=== PATIENT | male | born 1995 | race Caucasian/White ===

== ENCOUNTER 2016-10-16 15:36 | Emergency (ER) | payer OTHER ==
[2016-10-16 15:41] VITALS: TEMP 98.4
--- NOTE | 2016-10-16 16:32 | EDPHY ---
H & P Time Seen by Provider: 10/16/16 16:02 HPI/ROS: CHIEF COMPLAINT: "Weak ankles" HISTORY OF PRESENT ILLNESS: Patient is a 21-year-old male who presents to the emergency department complaining of bilateral weak ankles. His primary complaint is that he cannot dorsiflex his feet bilaterally. He began to notice this on Monday. The patient normally plays hockey and soccer. He is unable to do both because of his weakness. He states he cannot walk on his heels. Patient denies numbness or tingling. He denies other leg weakness. No upper extremity weakness or numbness. He had no recent trauma or fall. No fevers or chills. No recent travel. 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 REVIEW OF SYSTEMS: My complete review of systems is negative except as mentioned in the HPI. Past Medical/Surgical History: Negative Past surgical history: Negative Smoking Status: Never smoked Physical Exam: Vitals noted GENERAL: Well-appearing, in no acute distress, alert. HEENT: Eyes normal to inspection, normal pharynx, no signs of dehydration. NECK: No thyromegaly, no lymphadenopathy, supple. RESPIRATORY: Clear to auscultation bilaterally, no rales, rhonchi or wheezing. CVS: Regular rate and rhythm, no rubs, murmurs, or gallops. ABDOMEN: Soft, nontender, nondistended, no organomegaly. BACK: Normal to inspection, no CVA tenderness. SKIN: Normal color, no rash, warm, dry. No pallor. EXTREMITIES: No pedal edema, no calf tenderness, no Homans sign or cords, no joint swelling. NEURO/PSYCH: Higher functions: Alert and Oriented. Normal speech and cognition. Normal mood and affect. Cranial nerves: Normal as tested. Cerebellar: Normal as tested. Good finger to nose, good [id number], normal gait. Peripheral exam: patient has mild bilateral dorsiflexion or weakness. He is unable to ambulate on his heels. He is able to ambulate on his toes. He has no quadriceps, hamstring or hip weakness. Normal sensation. Normal reflexes. Constitutional: Initial Vital Signs Temperature (C) 36.9 C 10/16/16 15:37 Heart Rate 87 10/16/16 15:37 Respiratory Rate 18 10/16/16 15:37 Blood Pressure 159/71 H 10/16/16 15:37 O2 Sat (%) 97 10/16/16 15:37 O2 Delivery Mode Room Air Allergies/Adverse Reactions: No Known Allergies Allergy (Unverified 10/16/16 15:41) Home Medications: Medication Instructions Recorded NK [No Known Home Meds] 10/16/16 Medical Decision Making - Diagnostics Imaging Results: Imaging Impressions Lumbar Spine MRI 10/16/16 16:38 Impression: Congenitally small lumbar neural canal. Otherwise unremarkable. Results called and discussed with GEOVANNI GARZON, at 10/16/2016 17:29 ED Course/Re-evaluation: In the emergency department I discussed possible etiologies with the patient. I answered all his questions. I discussed the case with Dr. rosales Benites from Neurology. He recommended lumbar MRI. I discussed with the patient. He consented. MRI lumbar spine: Congenitally small lumbar spinal canal. CBC and chemistry unremarkable. I discussed the results with the patient. On recheck he had no new focal neurologic deficits. He will follow up with Dr. Shaffer this week. He was given contact information. He will return to the emergency department if his symptoms worsen. Differential Diagnosis: My differential includes disc herniation, cauda equina syndrome, demyelinization disease, Guillain-[place], [place] - Data Points Laboratory Results: Laboratory Results 10/16/16 17:30 10/16/16 17:30 10/16/16 10/16/16 17:30 17:30 WBC 5.98 10^3/uL 10^3/uL (3.80-9.50) RBC 4.90 10^6/uL 10^6/uL (4.40-6.38) Hgb 15.1 g/dL g/dL (13.7-17.5) Hct 44.6 % % (40.0-51.0) MCV 91.0 fL fL (81.5-99.8) MCH 30.8 pg pg (27.9-34.1) MCHC 33.9 g/dL g/dL (32.4-36.7) RDW 12.0 % % (11.5-15.2) Plt Count 234 10^3/uL 10^3/uL (150-400) MPV 9.7 fL fL (8.7-11.7) Neut % (Auto) 72.8 % % (39.3-74.2) Lymph % (Auto) 20.7 % % (15.0-45.0) Ware % (Auto) 4.5 % % (4.5-13.0) Eos % (Auto) 0.7 % % (0.6-7.6) Baso % (Auto) 1.0 % % (0.3-1.7) Nucleat RBC Rel Count 0.0 % % (0.0-0.2) Absolute Neuts (auto) 4.35 10^3/uL 10^3/uL (1.70-6.50) Absolute Lymphs (auto) 1.24 10^3/uL 10^3/uL (1.00-3.00) Absolute Monos (auto) 0.27 10^3/uL L 10^3/uL (0.30-0.80) Absolute Eos (auto) 0.04 10^3/uL 10^3/uL (0.03-0.40) Absolute Basos (auto) 0.06 10^3/uL 10^3/uL (0.02-0.10) Absolute Nucleated RBC 0.00 10^3/uL 10^3/uL (0-0.01) Immature Gran % 0.3 % % (0.0-1.1) Immature Gran # 0.02 10^3/uL 10^3/uL (0.00-0.10) Sodium 141 mEq/L mEq/L (134-144) Potassium 4.5 mEq/L mEq/L (3.5-5.2) Chloride 106 mEq/L mEq/L (97-110) Carbon Dioxide 26 mEq/l mEq/l (22-31) Anion Gap 9 mEq/L mEq/L (8-16) BUN 16 mg/dL mg/dL (7-23) Creatinine 1.1 mg/dL mg/dL (0.7-1.3) Estimated GFR > 60 Glucose 88 mg/dL mg/dL (70-100) Calcium 10.0 mg/dL mg/dL (8.5-10.4) Departure - Departure Disposition: Home, Routine, Self-Care Clinical Impression: Weakness of foot Qualifiers: Laterality: unspecified laterality Qualified Code(s): M21.40 - Flat foot [pes planus] (acquired), unspecified foot Condition: Good Instructions: Weakness (ED) Additional Instructions: Your MRI of lumbar spine was normal. You need close follow-up with Dr. Shaffer from Neurology. Call to make an appointment was office. Return to the emergency department if you develope increasing weakness, numbness, incontinence of urine or stool, fever, chills or any other concerns. Referrals: Kwame Shaffer DO [Doctor of Osteopathy] - 2-3 days without fail
[2016-10-16 17:45] LABS: % IMMATURE GRANULYOCYTES 0.3 % (0.0-1.1); ABSOLUTE IMMATURE GRANULOCYTES 0.02 10^3/uL (0.00-0.10); ADD DIFF? NO; ADD MORPH? NO; ADD SCAN? NO; ATYPICAL LYMPHOCYTE FLAG 10 (0-99); FRAGMENT RBC FLAG 0 (0-99); HEMATOCRIT 44.6 % (40.0-51.0); HEMOGLOBIN 15.1 g/dL (13.7-17.5); LEFT SHIFT FLG 0 (0-99); LIPEMIA HEMOLYSIS FLAG 90 (0-99); MEAN CELL HEMOGLOBIN 30.8 pg (27.9-34.1); MEAN CELL HEMOGLOBIN CONCENTR. 33.9 g/dL (32.4-36.7); MEAN PLATELET VOLUME 9.7 fL (8.7-11.7); PLATELET CLUMPS FLAG 0 (0-99); PLATELET COUNT 234 10^3/uL (150-400)
[2016-10-16 17:48] LABS: ANION GAP 9 mEq/L (8-16); CARBON DIOXIDE 26 mEq/l (22-31); CHLORIDE 106 mEq/L (97-110); CREATININE 1.1 mg/dL (0.7-1.3); GLOMERULAR FILTRATION RATE > 60; GLUCOSE 88 mg/dL (70-100); POTASSIUM 4.5 mEq/L (3.5-5.2); SODIUM 141 mEq/L (134-144)
[2016-10-16 18:05] VITALS: BP 130/77; PULSE 70; RESP 14; O2SAT 94
== END 2016-10-16 18:03 | disposition home or self-care (01) ==
DX: M21.40 Flat foot [pes planus] (acquired), unspecified foot (principal)